=== PATIENT | female | born 1990 | race Caucasian/White ===

== ENCOUNTER 2017-06-24 14:20 | Outpatient (CLI) | END 2017-06-24 14:21 | disposition home or self-care (01) | LOC: LAB 14:20 | PROVIDERS: ATTEND Nurse Practitioner Family | DX: E03.9 Hypothyroidism, unspecified (principal) | CPT/HCPCS: 36415; 84443 ==

== ENCOUNTER 2017-09-10 12:56 | Outpatient (CLI) ==
[2017-09-10 13:07] LABS: BASOPHILS % (AUTO) 0.8 % (0.0-3.0); EOSINOPHILS # (AUTO) 0.1 K/ul (0.0-0.7); EOSINOPHILS % (AUTO) 1.7 % (0.0-7.0); HEMATOCRIT 36.5 % (37.0-47.0); HEMOGLOBIN 12.7 g/dl (12.0-16.0); IMMATURE GRANULOCYTE % (AUTO) 0.2 % (0.0-5.0); LYMPHOCYTES % (AUTO) 42.9 (10.0-50.0); MEAN CORPUSCULAR HEMOGLOBIN 30.3 pg (27.0-31.0); MEAN CORPUSCULAR HGB CONC 34.8 (31.8-35.4); MEAN CORPUSCULAR VOLUME 87.1 fl (81.0-99.0); MONOCYTES # (AUTO) 0.3 K/uL (0.4-2.0); MONOCYTES % (AUTO) 6.4 (0-10); NEUTROPHILS # (AUTO) 2.3 K/ul (2.0-6.9); PLATELET COUNT 222 10^3/uL (140-440); RED BLOOD COUNT 4.19 10^6/ul (4.20-5.40); WHITE BLOOD COUNT 4.71 K/ul (4.6-10.2)
[2017-09-10 13:38] LABS: CHOL/HDL RATIO 2.7 (4.5-5.5)
== END 2017-09-10 12:57 | disposition home or self-care (01) ==
LOC: LAB 12:56
PROVIDERS: ATTEND Nurse Practitioner Family
DX: E03.9 Hypothyroidism, unspecified (principal); R89.9 Unspecified abnormal finding in specimens from other organs, systems and tissues
CPT/HCPCS: 36415; 80061; 84443; 85025

== ENCOUNTER 2017-11-17 16:56 | Outpatient (CLI) | END 2017-11-17 16:57 | disposition home or self-care (01) | LOC: LAB 16:56 | PROVIDERS: ATTEND Nurse Practitioner Family | DX: E03.9 Hypothyroidism, unspecified (principal) | CPT/HCPCS: 36415; 84443 ==

== ENCOUNTER 2018-01-14 10:21 | Outpatient (CLI) | END 2018-01-14 10:22 | disposition home or self-care (01) | LOC: RHC-LAB 10:21 | PROVIDERS: ATTEND Nurse Practitioner Family | DX: E03.9 Hypothyroidism, unspecified (principal); R94.6 Abnormal results of thyroid function studies | CPT/HCPCS: 36415; 84443 ==

== ENCOUNTER 2018-04-22 10:34 | Outpatient (CLI) | END 2018-04-22 10:35 | disposition home or self-care (01) | LOC: RHC-LAB 10:34 | PROVIDERS: ATTEND Nurse Practitioner Family | DX: E03.9 Hypothyroidism, unspecified (principal); R94.6 Abnormal results of thyroid function studies | CPT/HCPCS: 36415; 84443 ==

== ENCOUNTER 2018-05-25 14:11 | Outpatient (CLI) | END 2018-05-25 14:12 | disposition home or self-care (01) | LOC: RHC-LAB 14:11 | PROVIDERS: ATTEND Nurse Practitioner Family | DX: R79.89 Other specified abnormal findings of blood chemistry (principal); E03.9 Hypothyroidism, unspecified | CPT/HCPCS: 36415; 84443 ==

== ENCOUNTER 2018-06-25 16:00 | Outpatient (CLI) | END 2018-06-25 16:01 | disposition home or self-care (01) | LOC: RHC-LAB 16:00 | PROVIDERS: ATTEND Nurse Practitioner Family | DX: E03.9 Hypothyroidism, unspecified (principal) | CPT/HCPCS: 36415; 84443 ==

== ENCOUNTER 2018-08-04 16:20 | Outpatient (CLI) | END 2018-08-04 16:21 | disposition home or self-care (01) | LOC: RHC-LAB 16:20 | PROVIDERS: ATTEND Nurse Practitioner Family | DX: E03.9 Hypothyroidism, unspecified (principal) | CPT/HCPCS: 36415; 84443 ==

== ENCOUNTER 2018-12-31 10:13 | Outpatient (CLI) | END 2018-12-31 10:14 | disposition home or self-care (01) | LOC: RHC-LAB 10:13 | PROVIDERS: ATTEND Nurse Practitioner Family | DX: E03.9 Hypothyroidism, unspecified (principal); N94.4 Primary dysmenorrhea | CPT/HCPCS: 36415; 80053; 84443; 85025 ==

== ENCOUNTER 2019-04-09 09:28 | Outpatient (CLI) | END 2019-04-09 09:29 | disposition home or self-care (01) | LOC: LAB 09:28 | PROVIDERS: ATTEND Nurse Practitioner Family | DX: E03.9 Hypothyroidism, unspecified (principal) | CPT/HCPCS: 36415; 84439; 84443; 84481 ==